=== PATIENT | male | born 1935 | race African-American/Black ===

== ENCOUNTER 2018-05-19 11:21 | Emergency (ER) | payer OTHER ==
[~2018-05-19] VITALS: Ht 175.3 cm; Wt 85.0 kg
[2018-05-19 11:25] VITALS: BP 126/66
[2018-05-19] MEDS ORDERED: BACITRACIN ZINC OINT UDPKT TOP ONE (12:15)
== END 2018-05-19 12:42 | disposition home or self-care (01) ==
LOC: ER 11:21
DX: T23.261A Burn of second degree of back of right hand, initial encounter (principal); I11.9 Hypertensive heart disease without heart failure; E78.00 Pure hypercholesterolemia, unspecified; X08.8XXA Exposure to other specified smoke, fire and flames, initial encounter; Y93.89 Activity, other specified; Y92.810 Car as the place of occurrence of the external cause
CPT/HCPCS: 16000; 99284